=== PATIENT | male | born 1985 | race Caucasian/White ===

== ENCOUNTER 2018-01-04 21:24 | Emergency (ER) | payer BC, OTHER, SELFPAY ==
[2018-01-04] MEDS ORDERED: Adacel (T-DAP) 0.5 ML VIAL ONE (21:44)
[2018-01-04] MEDS ORDERED: Bacitracin Zinc Ointment 30 gm TUBE ONE (22:27)
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
== END 2018-01-04 22:36 | disposition home or self-care (01) ==
LOC: SCSER 21:24
DX: S51.812A Laceration without foreign body of left forearm, initial encounter (principal); F17.210 Nicotine dependence, cigarettes, uncomplicated; V29.9XXA Motorcycle rider (driver) (passenger) injured in unspecified traffic accident, initial encounter
CPT/HCPCS: 12002; 90471; 90715

== ENCOUNTER 2018-01-19 20:58 | Emergency (ER) | payer OTHER ==
[2018-01-19] MEDS ORDERED: Bacitracin Zinc 1 Packet ONE (21:47)
== END 2018-01-19 21:57 | disposition home or self-care (01) ==
LOC: SCSER 20:58
DX: S51.812D Laceration without foreign body of left forearm, subsequent encounter (principal); X58.XXXD Exposure to other specified factors, subsequent encounter